=== PATIENT | male | born 1980 | race Caucasian/White ===

== ENCOUNTER 2017-09-08 20:51 | Emergency (ER) | payer OTHER, SELFPAY ==
[2017-09-08 21:29] LABS: #Basophils 0.1 thou/uL (0.0-0.2); #Eosinphils 1.7 thou/uL (0.0-0.7); #Lymphocytes 4.5 thou/uL (1.20-3.40); #Monocytes 1.3 thou/uL (0.11-0.59); #Neutrophils 6.5 thou/uL (1.40-6.50); %Basophils 0.7 % (0.0-1.0); %Eosinophils 12.2 % (0.0-10.0); %Lymphocytes 31.8 % (21.0-51.0); %Monocytes 8.9 % (0.0-10.0); Hematocrit 45.1 % (42.0-52.0); Mean Platelet Volume 7.5 fL (7.4-10.4); Red Blood Cell (RBC) Count 4.76 mill/uL (4.70-6.10); White Blood Cell (WBC) Count 14.1 thou/uL (4.8-10.8)
--- NOTE | 2017-09-08 21:38 | RAD ---
RADIOGRAPH CHEST 2 VIEWS: HISTORY: 37-year-old male with acute chest pain. FINDINGS: There is no air space density, pulmonary edema, pleural effusion, pneumothorax, or cardiomegaly. IMPRESSION: No acute cardiopulmonary findings. cooper POS: [facility]
[2017-09-08 21:50] LABS: ALT (SGPT) 42 U/L (8-55); AST (SGOT) 48 U/L (5-34); Alkaline Phosphatase 87 U/L (40-150); Anion Gap 13 mmol/L (10-20); BUN (Urea Nitrogen) 21 mg/dL (8.9-20.6); Bilirubin, Total 0.4 mg/dL (0.2-1.2); Calc. Creatinine Clearance 0 mL/min (70-130); Calcium 9.1 mg/dL (7.8-10.44); Carbon Dioxide 22 mmol/L (22-29); Chloride 107 mmol/L (98-107); Estimated GFR-MDRD Greater than 90; Globulin 3.2 g/dL (2.4-3.5); Protein, Total 7.2 g/dL (6.0-8.3)
[2017-09-08 21:56] LABS: Troponin I Less than 0.010 ng/mL (< 0.028)
--- NOTE | 2017-10-05 20:53 | EKG ---
Test Reason : Blood Pressure : / mmHG Vent. Rate : 063 BPM Atrial Rate : 063 BPM P-R Int : 132 ms QRS Dur : 098 ms QT Int : 388 ms P-R-T Axes : 073 070 064 degrees QTc Int : 397 ms Normal sinus rhythm with sinus arrhythmia Incomplete right bundle branch block Borderline ECG Confirmed by AMALIA GARCÍA, AGNES ([id number]), furnace process supervisor BUTCH NULL ([id number]) on 10/05/2017 8:52:21 PM Referred By: Confirmed By:AGNES HOLLAND MD
== END 2017-09-09 01:32 | disposition home or self-care (01) ==
LOC: ERS 20:51
DX: R07.1 Chest pain on breathing (principal); E86.0 Dehydration; F17.210 Nicotine dependence, cigarettes, uncomplicated; F17.290 Nicotine dependence, other tobacco product, uncomplicated
CPT/HCPCS: 71020; 80053; 82553; 84484; 85025; 93005; 96360; 96361; 99406

== ENCOUNTER 2021-11-13 18:48 | Inpatient (IN) | payer OTHER, SELFPAY ==
[~2021-11-13 18:48] MED LIST: Iopamidol 370 76% 100 ML VIAL ONE
[2021-11-13 20:49] LABS: #Basophils 0.1 thou/uL (0.0-0.2); #Eosinphils 1.1 thou/uL (0.0-0.7); #Lymphocytes 2.9 thou/uL (1.20-3.40); #Monocytes 1.8 thou/uL (0.11-0.59); #Neutrophils 8.7 thou/uL (1.40-6.50); %Basophils 0.7 % (0.0-1.0); %Eosinophils 7.6 % (0.0-10.0); %Lymphocytes 19.8 % (21.0-51.0); %Monocytes 12.4 % (0.0-10.0); %Neutrophils 59.6 % (42.0-75.0); Hemoglobin 13.3 g/dL (14.0-18.0); Mean Corpuscular HGB CONC 32.5 g/dL (32.0-36.0); Mean Corpuscular Hemoglobin 30.3 pg (27.0-31.0); Mean Corpuscular Volume 93.4 fL (78.0-98.0); Mean Platelet Volume 6.9 fL (7.4-10.4); Platelet Count 378 thou/uL (130-400); RBC Distribution Width 11.8 % (11.5-14.5); Red Blood Cell (RBC) Count 4.37 mill/uL (4.70-6.10); White Blood Cell (WBC) Count 14.5 thou/uL (4.8-10.8)
[2021-11-13 21:11] LABS: ALT (SGPT) 22 U/L (8-55); AST (SGOT) 23 U/L (5-34); Albumin 3.6 g/dL (3.5-5.0); Alkaline Phosphatase 76 U/L (40-110); Anion Gap 13 mmol/L (10-20); BUN (Urea Nitrogen) 17 mg/dL (8.9-20.6); Bilirubin, Total 0.2 mg/dL (0.2-1.2); CRP (Inflammatory) 5.47 mg/dL (= or < 0.5); Calc. Creatinine Clearance 0 mL/min (70-130); Calcium 9.2 mg/dL (7.8-10.44); Carbon Dioxide 30 mmol/L (22-29); Chloride 99 mmol/L (98-107); Globulin 3.4 g/dL (2.4-3.5); Glucose 89 mg/dL (70-105); Potassium 3.7 mmol/L (3.5-5.1); Sodium 138 mmol/L (136-145)
[2021-11-13] MEDS ORDERED: Ketorolac Tromethamine 30 MG/ML VIAL ONE (21:35)
[2021-11-13] MEDS ORDERED: Clindamycin/D5W 900 mg/50 ml Premix Bag ONE (21:35)
[2021-11-13] MEDS ORDERED: Acetaminophen 325 MG TAB PO PRN (22:28)
[2021-11-13] MEDS ORDERED: cefTRIAXone\\ROCEPHIN 1 GM in Sodium Chloride 0.9% 100 ML IVPB SCH (23:30)
[2021-11-14 00:25] VITALS: BMI 20.7
[2021-11-14] MEDS: cefTRIAXone\\ROCEPHIN 2 GM in Sodium Chloride 0.9% 100 ML IVPB SCH ×2 (00:50→23:05)
[2021-11-14] MEDS ORDERED: Vancomycin 1.5 GRAM/300 ML BAG 1.5 GM in Premix Bag 1 BAG IVPB SCH (01:00)
[2021-11-14 01:35] LABS: INR-International Normal Ratio 1.1; PTT 41.5 sec (22.9-36.1); Prothrombin Time 13.9 sec (12.0-14.7)
[2021-11-14 02:09] LABS: HBCM Index 0.07 S/CO (0-0.79); HBSAg Index 0.28 S/CO (0-0.99); HIV (1/2) Antibody/Antigen Non-Reactive (NonReactive); HIV 1/2 INDEX 0.24 S/CO (<1.00); Hep A IgM AB Non-Reactive (NonReactive); Hep A IgM S/CO 0.07 S/CO (0-0.79); Hep B Surf Ag Non-Reactive S/CO (NonReactive); Hep C IgG Ab Non-Reactive (NonReactive); Hep C Index 0.07 S/CO (0-0.79); Hepatitis B Core IgM Abs Non-Reactive (NonReactive)
[2021-11-14 07:58] LABS: #Basophils 0.1 thou/uL (0.0-0.2); #Eosinphils 1.2 thou/uL (0.0-0.7); #Lymphocytes 2.5 thou/uL (1.20-3.40); #Monocytes 1.4 thou/uL (0.11-0.59); #Neutrophils 7.9 thou/uL (1.40-6.50); %Basophils 0.8 % (0.0-1.0); %Eosinophils 9.3 % (0.0-10.0); %Lymphocytes 18.9 % (21.0-51.0); %Monocytes 10.4 % (0.0-10.0); %Neutrophils 60.6 % (42.0-75.0); Hemoglobin 12.7 g/dL (14.0-18.0); Mean Corpuscular HGB CONC 31.9 g/dL (32.0-36.0); Mean Corpuscular Hemoglobin 29.4 pg (27.0-31.0); Mean Corpuscular Volume 92.1 fL (78.0-98.0); Mean Platelet Volume 6.8 fL (7.4-10.4); Platelet Count 366 thou/uL (130-400); RBC Distribution Width 11.7 % (11.5-14.5); Red Blood Cell (RBC) Count 4.33 mill/uL (4.70-6.10)
[2021-11-14] MEDS: Vancomycin 1 GM in Premix Bag 1 BAG IVPB SCH ×2 (09:12→18:06)
[2021-11-14 11:07] LABS: Syphilis Antibody Nonreactive (Nonreactive); Syphilis Antibody Index 0.02 S/CO (<1.00 Non-Reactive)
[2021-11-14 11:38] LABS: SARS-CoV-2 PCR by NAA Not Detected (NotDetected)
[2021-11-15 01:37] LABS: Vancomycin, Trough 12.3 ug/mL
[2021-11-15] MEDS: Vancomycin 1 GM in Premix Bag 1 BAG IVPB SCH ×2 (02:50→09:21)
[2021-11-15 06:10] LABS: #Basophils 0.1 thou/uL (0.0-0.2); #Eosinphils 1.3 thou/uL (0.0-0.7); #Lymphocytes 2.1 thou/uL (1.20-3.40); #Monocytes 1.4 thou/uL (0.11-0.59); #Neutrophils 9.2 thou/uL (1.40-6.50); %Basophils 0.7 % (0.0-1.0); %Eosinophils 9.2 % (0.0-10.0); %Lymphocytes 14.7 % (21.0-51.0); %Monocytes 10.1 % (0.0-10.0); %Neutrophils 65.3 % (42.0-75.0); Hemoglobin 13.5 g/dL (14.0-18.0); Mean Corpuscular HGB CONC 31.7 g/dL (32.0-36.0); Mean Corpuscular Hemoglobin 29.5 pg (27.0-31.0); Mean Platelet Volume 6.8 fL (7.4-10.4); Platelet Count 386 thou/uL (130-400); RBC Distribution Width 11.8 % (11.5-14.5); Red Blood Cell (RBC) Count 4.59 mill/uL (4.70-6.10)
[2021-11-15 06:33] LABS: Anion Gap 11 mmol/L (10-20); BUN (Urea Nitrogen) 11 mg/dL (8.9-20.6); Calc. Creatinine Clearance 134 mL/min (70-130); Carbon Dioxide 28 mmol/L (22-29); Chloride 105 mmol/L (98-107); Glucose 104 mg/dL (70-105); Potassium 4.2 mmol/L (3.5-5.1); Sodium 140 mmol/L (136-145)
[2021-11-15] MEDS: Floranex 1 GM Packet PO SCH (09:18)
[2021-11-15] MEDS: Multivit, Chewable SF 1 TAB PO SCH (09:19)
[2021-11-15] MEDS: Clindamycin 150 MG CAP PO SCH ×2 (14:35→20:03)
[2021-11-16 05:32] LABS: #Basophils 0.1 thou/uL (0.0-0.2); #Eosinphils 1.4 thou/uL (0.0-0.7); #Lymphocytes 2.4 thou/uL (1.20-3.40); #Monocytes 1.9 thou/uL (0.11-0.59); #Neutrophils 9.2 thou/uL (1.40-6.50); %Basophils 0.6 % (0.0-1.0); %Eosinophils 9.7 % (0.0-10.0); %Lymphocytes 15.7 % (21.0-51.0); %Monocytes 12.4 % (0.0-10.0); %Neutrophils 61.6 % (42.0-75.0); Hemoglobin 14.2 g/dL (14.0-18.0); Mean Corpuscular HGB CONC 32.3 g/dL (32.0-36.0); Mean Corpuscular Hemoglobin 29.9 pg (27.0-31.0); Mean Corpuscular Volume 92.5 fL (78.0-98.0); Mean Platelet Volume 6.5 fL (7.4-10.4); Platelet Count 395 thou/uL (130-400); Red Blood Cell (RBC) Count 4.74 mill/uL (4.70-6.10)
[2021-11-16] MEDS: Clindamycin 150 MG CAP PO SCH ×2 (05:42→14:14)
[2021-11-16 05:51] LABS: Anion Gap 11 mmol/L (10-20); BUN (Urea Nitrogen) 13 mg/dL (8.9-20.6); Calc. Creatinine Clearance 132 mL/min (70-130); Calcium 9.1 mg/dL (7.8-10.44); Carbon Dioxide 27 mmol/L (22-29); Chloride 105 mmol/L (98-107); Glucose 102 mg/dL (70-105); Potassium 4.5 mmol/L (3.5-5.1); Sodium 138 mmol/L (136-145)
[2021-11-16] MEDS: Floranex 1 GM Packet PO SCH (09:00)
[2021-11-16] MEDS: Multivit, Chewable SF 1 TAB PO SCH (09:16)
[2021-11-16 12:22] VITALS: BP 120/71; TEMP 98.1
== END 2021-11-16 14:45 | disposition home or self-care (01) | DRG 602 ==
LOC: ERS 18:48 → T4-A 21:53
PROVIDERS: ADMIT Family Medicine; ATTEND Family Medicine
DX: L03.116 Cellulitis of left lower limb (principal); E43 Unspecified severe protein-calorie malnutrition; L02.416 Cutaneous abscess of left lower limb; R23.8 Other skin changes; M60.9 Myositis, unspecified; Z20.822 Contact with and (suspected) exposure to COVID-19; I87.8 Other specified disorders of veins; F17.210 Nicotine dependence, cigarettes, uncomplicated; F32.A Depression, unspecified; Z88.0 Allergy status to penicillin; Z88.1 Allergy status to other antibiotic agents; Z88.2 Allergy status to sulfonamides; Z98.890 Other specified postprocedural states; Z68.20 Body mass index [BMI] 20.0-20.9, adult
CPT/HCPCS: 36415; 80048; 80053; 80074; 80202; 83605; 84145; 85025; 85610; 85652; 85730; 86140; 86780; 87040; 87389; 96374; 96375; J0696; J1885; J3370; J3490; Q9967; U0003; U0005